=== PATIENT | female | born 1980 | race Caucasian/White ===

== ENCOUNTER 2017-06-13 17:02 | Emergency (ER) | payer OTHER ==
[~2017-06-13] VITALS: Ht 152.4 cm; Wt 51.5 kg
[~2017-06-13 17:02] MED LIST: NAPR220C11 PO
[2017-06-13 17:12] VITALS: BP 138/83; PULSE 120; RESP 19; O2SAT 98
--- NOTE | 2017-06-13 17:23 | ED.REPORT ---
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 [facility] and did not know there were bones in the sample. She denies any medical hx. Nursing Notes Stated Complaint: FISH BONE STUCK IN THROAT Chief Complaint: General Complaint Nursing Notes Reviewed: Yes Allergies: Coded Allergies: acetaminophen (Verified Allergy, Intermediate, VOMITING, 08/06/14) hydrocodone (Verified Allergy, Intermediate, VOMITING, 08/06/14) Oxycodone (Verified Adverse Reaction, Intermediate, VOMITING, 08/06/14) Uncoded Allergies: ALL NARCOTICS (Allergy, Unknown, 08/06/14) Miscellaneous Medications Naproxen Sodium (Aleve) 220 Mg Capsule 220 MG PO General Time Seen by MD: 17:20 Chief Complaint Other (fish bone stuck in throat) Hx Obtained From: Patient Arrived By: Ambulance Onset Occurred: 16 - 30 minutes ago Symptom Duration: Since onset Caused by: Accidental Severity: Current: Moderate Recent Healthcare: No recent doctor visit, No recent hospitalization Similar Sx Previous: No Past Medical History Past Medical History MERSA 2009 Past Surgical History denies Smoking History Current Every Day Smoker Social History Alcohol Use: Denies alcohol use Drug Use: Denies drug use Occupation lives with boyfriend Ambulatory Status Independent Review of Systems Full Review of Systems Ears / Nose / Throat: Reports: Sore throat, Throat pain Respiratory: Reports: Non-productive cough GI: Denies: Nausea Neurologic: Denies: Change LOC, Headache Psychiatric: Reports: Anxiety Complete sys rev & neg: except as marked. Physical Exam Normal voice, speaking in full sentences, gagging occasionally Vital Signs Vital Signs Date Time Temp Pulse Resp B/P Pulse Ox O2 Delivery O2 Flow Rate FiO2 06/13/17 20:16 36.2 80 16 102/49 98 Room Air 06/13/17 18:02 80 20 120/57 98 Room Air 06/13/17 17:12 37.4 120 19 138/83 98 Room Air Initial VS: Reviewed General/Constitutional: Awake, Alert Distress / Hydration: Positive: Distress moderate Behavior: Positive: Anxious, Tearful Head / Eyes: Atraumatic, Normocephalic Respiratory / Chest: Atraumatic, Breath sounds NL, Breath sounds = bilat Cardiovascular: Heart rate NL, Regular rhythm, Heart sounds NL, No gallop, No murmurs, No rubs Upper Extremities Upper Extremity / MS: Atraumatic, Inspection NL, Full range of motion, No deformity Wrist / Hand: Atraumatic, Inspection NL, Full range of motion, No deformity Lower Extremity / Pelvis / MS: Atraumatic, Inspection NL, Full range of motion , No deformity Ankle / Foot: Atraumatic, Inspection NL, Full range of motion, No deformity Skin: Atraumatic, Color NL, No rash Interpretation & Diagnostics Lab Results Interpretation Test 06/13/17 19:43 Hold Purple Top Tube Received (Received) Hold Blue Top Tube Received (Received) Hold [place] Top Tube Received (Received) Hold [place] Top Tube Received (Received) X-Ray Interpretation Xray Interpretation: SOFT TISSUE NECK X-RAY IMPRESSION: No radiopaque foreign body. Dictated by: Candice Holley M.D. on 06/13/2017 at 18:57 Approved by: Candice Holley M.D. on 06/13/2017 at 18:58 X-Ray Ordered: Neck Interpretation / Wet Read by: Interpret - Radiologist Re-Eval/Medical Decision Time of Eval: 17:27 Re-Evaluation/Progress Note: Pt indicates that the bone has moved further down in her throat. Plan to call GI. Time of Eval: 19:30 Re-Evaluation/Progress Note: Dr. Sriram Martinez sees pt in the ED. No foreign body appreciated. Plan for discharge. Now swallowing and eating. Consultation #1: Referral / Consult Name: Chastity Connors MD Call Returned at: 18:06 Note: Case discussed with GI. Consultation #2: Referral / Consult Name: Sriram Martinez MD Call Returned at: 18:12 Note: Case discussed with ENT. Dr. Martinez will see the pt in the ED. Counseled Regarding: Diagnosis, Lab results, Need for follow-up, When/why to return to ED Discharge & Departure Primary Impression: Foreign body sensation in throat Disposition: Home Discharge Condition All VS Reviewed: Yes Condition: Stable Additional Instructions: ED evaluation included interview, examination x-ray of the neck and consultation with ENT physician. No fishbone was seen in throat. It seems like it may have worked its way down. Start with a soft type diet tonight, follow up with Dr. Martinez if you have continued sensation of an object in her throat. Referrals: Sriram Martinez MD [facility] Attestation Portion of this note were transcribed by Salome Purcell. I, Dr. Toscano, personally performed the history, physical exam, and medical decision-making: I reviewed and confirmed the accuracy for the information in the transcribed note. Signed by: amy Madden, 06/13/17 1800 copies to: Antony Grande MD, Donald L MD Jun 13, 2017 17:23 Salome Purcell Jun 13, 2017 17:31
[2017-06-13 18:02] VITALS: BP 120/57; PULSE 80; RESP 20; O2SAT 98
--- NOTE | 2017-06-13 18:59 | DRSVH ---
PROCEDURE: X-RAY NECK SOFT TISSUE ([id number]) INDICATIONS: fish bone in throat TECHNIQUE: 2 views of the neck were acquired. COMPARISON: [facility], , NECK SOFT TISSUE, 08/06/2014, 16:41. FINDINGS: Airway: The airway appears patent. No radiopaque foreign body. Soft tissues: Prevertebral soft tissues are normal in thickness. The epiglottis and aryepiglottic f olds appear normal. No soft tissue gas. Bones: No suspicious bony lesions. Visualized cervical spine is normally aligned. IMPRESSION: No radiopaque foreign body. Dictated by: Candice Holley M.D. on 06/13/2017 at 18:57 Approved by: Candice Holley M.D. on 06/13/2017 at 18:58
[2017-06-13 20:16] VITALS: BP 102/49; PULSE 80; RESP 16; O2SAT 98
--- NOTE | 2017-06-13 21:55 | ER ---
[address] [address] EMERGENCY DEPARTMENT REPORT PATIENT: RAMON DEMPSEY : 1980 MR#: [id number] ADMIT: 06/13/2017 JOB ID: [id number] OTOLARYNGOLOGY CONSULT: CHIEF COMPLAINT: Fish bone foreign body in throat, throat pain. SUBJECTIVE: A 37-year-old female chronic smoker presented to the emergency department within an hour of presumably inadvertently swallowing a fishbone, salmon. She was sampling what she thought was chicken and felt something in her throat, which has now seemed to pass inferiorly, pointing to the base of her neck. Evidently significant anxiety initially, but able to tolerate secretions, swallow, no airway obstruction. Required foreign body removal evidently three years ago under sedation possibly via GI endoscopy, presumably fish bone within the upper esophagus. Chronic smoking, decreasing amounts, but no long-term odynophagia, dysphagia, or voice issues. Denies otalgia or other ENT complaints. PAST MEDICAL HISTORY: Denies other prior surgeries. MEDICATIONS: None. ALLERGIES: None, but sensitive to narcotics. SOCIAL HISTORY: Smokes, cutting back. Did not mention alcohol or drug abuse. REVIEW OF SYSTEMS: Family history reviewed on the nursing intake notes. PHYSICAL EXAMINATION: VITAL SIGNS: On the chart. GENERAL APPEARANCE: Well-developed, well-nourished female. Slightly coarse voice but no stridor. No respiratory distress and she is tolerating her secretions. She is awake and alert. HEENT: Head is normocephalic, atraumatic. External ears normal. Clear ear canals and tympanic membranes, clear middle ears. Nose: External nose is normal. Intranasally normal mucosa. Moderately narrow nasal cavities bilaterally, possibly right greater than left. Oral cavity/oropharynx: 2+ tonsils. No visible foreign body or trauma seen. Neck: Soft and nontender. No masses. PROCEDURE: Flexible laryngoscopy. INDICATIONS: Possible fish bone foreign body, throat pain. FINDINGS: No visible foreign body. Narrow right nasal cavity. Able to pass the scope on the left. Normal nasopharynx, vallecula, base of tongue, epiglottis. Clear piriform sinuses. Normally mobile true vocal cords with minimal erythema most consistent with tobacco use. No visible foreign body or evidence of prior foreign body. No pooling of secretions. COMPLICATIONS: None. DESCRIPTION OF PROCEDURE: Following verbal consent, first the right and then the left nasal cavity was sprayed with a small amount of Afrin and 4% lidocaine. The scope was initially passed into the right nasal cavity but due to tenderness I then passed on the left side. The above findings were noted. No visible foreign body. She tolerated the procedure moderately well, with occasional discomfort. There were no known complications. ASSESSMENT: 1. Possible pharyngeal/esophageal foreign body, fishbone by history. No visible foreign body or trauma on flexible laryngoscopy. 2. Throat pain, dysphagia. 3. Tobacco dependence. PLAN: As discussed with the patient and her presumed , there was no visible foreign body or evidence of prior trauma. We hope the foreign body has passed and she may be feeling residual irritation. If she does not improve over the next 24-48 hours, she will contact the office. She may require a general anesthetic for endoscopy, possible foreign body removal. The patient agrees with the plan, understands, and is appreciative. JEFFERY
== END 2017-06-13 20:17 | disposition home or self-care (01) ==
LOC: EDBD 17:02 → SED 17:02
DX: R09.89 Other specified symptoms and signs involving the circulatory and respiratory systems (principal); X58.XXXA Exposure to other specified factors, initial encounter; Y92.512 Supermarket, store or market as the place of occurrence of the external cause; Y93.89 Activity, other specified; Y99.8 Other external cause status; R07.0 Pain in throat; R13.10 Dysphagia, unspecified; F17.200 Nicotine dependence, unspecified, uncomplicated; Z86.14 Personal history of Methicillin resistant Staphylococcus aureus infection; Z88.6 Allergy status to analgesic agent; Z88.5 Allergy status to narcotic agent